=== PATIENT | male | born 1980 | race Caucasian/White ===

== ENCOUNTER 2017-08-03 12:49 | Emergency (ER) | payer OTHER ==
[~2017-08-03] VITALS: Ht 185.4 cm; Wt 79.0 kg
[~2017-08-03 12:49] MED LIST: DEXT10CA PO; IBUP800T23 PO; METH500T3 PO; OMEP20TA39 PO; RISP1TAB2 PO; SERT-129 PO; VENL75TA91 PO
[2017-08-03 13:16] VITALS: BP 149/88; PULSE 104; RESP 18; TEMP 98.8; O2SAT 96
[2017-08-03 13:36] VITALS: BP 147/98; PULSE 103; RESP 18; TEMP 97.8; O2SAT 98
--- NOTE | 2017-08-03 13:43 | PD ---
HPI . Dizziness Chief Complaint: Anxiety Time Seen by Provider: 13:33 Travel History International Travel<30 days: No Contact w/Intl Traveler<30days: No History of Present Illness HPI Patient presents with chief complaint dizziness and palpitations. Onset was noon. He states that [facility] was [facility] and was just getting ready to eat some lunch when he had the sudden onset of the dizziness. The symptoms persist. He is unaware of any modifying factors. Symptoms are mild. PFSH Past Medical History Hx Anticoagulant Therapy: No ADHD: Yes Anxiety: Yes Depression: Yes Cardiovascular Problems: No Chemotherapy: No Cerebrovascular Accident: No Diabetes: No Diminished Hearing: Yes ([place] LEFT EAR AND TINNITUS) Musculoskeletal: No Neurologic: No Respiratory: No Past Surgical History Appendectomy: Yes Tonsillectomy: Yes Other Surgery: Yes (VARICOSEAL, HEMROID SX) Social History Alcohol Use: Yes (SOCIALLY) Tobacco Use: Yes (07/09 PPD) Substance Use: No Allergies-Medications (Allergen,Severity, Reaction): Coded Allergies: codeine (Verified Allergy, Severe, Rash, 08/03/17) oxycodone (Verified Allergy, Severe, Rash, 08/03/17) acetaminophen (Unverified Allergy, Intermediate, 08/03/17) diff urinating hydrocodone (Unverified Allergy, Intermediate, 08/03/17) diff urinating sulfamethoxazole (Unverified Allergy, Intermediate, rash, 08/03/17) trimethoprim (Unverified Allergy, Intermediate, rash, 08/03/17) Reported Meds & Prescriptions Reported Meds & Active Scripts Active Potassium Chloride ER (Potassium Chloride) 20 Meq Tab 20 Meq PO BID Mag-Oxide (Magnesium Oxide) 200 Mg Magnesium Tablet 1 Tab PO BID Calcium 600 with Vitamin D (Calcium Carbonate-Cholecalciferol) 600-400 mg-Unit Tab 1 Tab PO BID Reported Omeprazole 20 Mg Tab 20 Mg PO DAILY Venlafaxine ER 24 HR (Venlafaxine HCl) 75 Mg Tab 75 Mg PO DAILY Trazodone (Trazodone HCl) 100 Mg Tablet 100-200 Mg PO HS Sertraline (Sertraline HCl) 100 Mg Tab 200 Mg PO DAILY Risperidone 1 Mg Tab 1 Mg PO HS Dextroamphetamine (Dextroamphetamine Sulfate) 10 Mg Tab 20 Mg PO DAILY Lubricant Opth Drops (Carboxymethylcellulose Sodium Opth Drops) 0.5% Drops 1 Drop EACH EYE TID PRN Review of Systems Except as stated in HPI: all other systems reviewed are Neg Eyes: No: Diploplia, Blurred Vision HENT: Positive: Lightheadedness, No: Headaches Cardiovascular: Positive: Palpitations Respiratory: No: Shortness of Breath Psychiatric: Positive: Anxiety Physical Exam Narrative GENERAL: Healthy-appearing young man in no acute distress. SKIN: warm/dry. HEAD: Normocephalic. Atraumatic. EYES: Pupils equal and round. No scleral icterus. No injection or drainage. ENT: No nasal bleeding or discharge. Mucous membranes pink and moist. NECK: Trachea midline. Full range of motion without pain.. CARDIOVASCULAR: Regular rate and rhythm. Heart sounds are normal. RESPIRATORY: No accessory muscle use. Clear to auscultation. Breath sounds equal bilaterally. MUSCULOSKELETAL: No obvious deformities. NEUROLOGICAL: Awake and alert. No obvious cranial nerve deficits. Motor grossly within normal limits. Normal speech. PSYCHIATRIC: Appropriate mood and affect; insight and judgment normal. Data Data Last Documented VS Vital Signs Date Time Temp Pulse Resp B/P (MAP) Pulse Ox O2 Delivery O2 Flow Rate FiO2 08/03/17 15:30 88 20 141/95 (110) 99 Room Air 08/03/17 13:36 97.8 Orders Orders Electrocardiogram (08/03/17 13:39) Basic Metabolic Panel (Bmp) (08/03/17 13:39) Complete Blood Count With Diff (08/03/17 13:39) Troponin I (08/03/17 13:39) Ct Brain W/O Iv Contrast(Rout) (08/03/17 13:39) Ecg Monitoring (08/03/17 13:39) Iv Access Insert/Monitor (08/03/17 13:39) Oximetry (08/03/17 13:39) Sodium Chloride 0.9% Flush (Ns Flush) (08/03/17 13:45) Diphenhydramine Inj (Benadryl Inj) (08/03/17 13:45) Prochlorperazine Inj (Compazine Inj) (08/03/17 13:45) Protein Corrected Calcium(Pcc) (08/03/17 14:25) Magnesium (Mg) (08/03/17 15:51) Potassium Chloride (Kcl) (08/03/17 16:00) Potassium Chloride (Kcl) (08/03/17 17:00) Calcium Chloride Inj (Calcium Chloride I (08/03/17 16:00) Labs Laboratory Tests Test 08/03/17 14:25 White Blood Count 6.4 TH/MM3 Red Blood Count 4.17 MIL/MM3 Hemoglobin 13.3 GM/DL Hematocrit 38.8 % Mean Corpuscular Volume 92.8 FL Mean Corpuscular Hemoglobin 31.8 PG Mean Corpuscular Hemoglobin Concent 34.3 % Red Cell Distribution Width 13.0 % Platelet Count 265 TH/MM3 Mean Platelet Volume 7.0 FL Neutrophils (%) (Auto) 71.9 % Lymphocytes (%) (Auto) 20.3 % Monocytes (%) (Auto) 6.9 % Eosinophils (%) (Auto) 0.4 % Basophils (%) (Auto) 0.5 % Neutrophils # (Auto) 4.6 TH/MM3 Lymphocytes # (Auto) 1.3 TH/MM3 Monocytes # (Auto) 0.4 TH/MM3 Eosinophils # (Auto) 0.0 TH/MM3 Basophils # (Auto) 0.0 TH/MM3 CBC Comment DIFF FINAL Differential Comment Blood Urea Nitrogen 5 MG/DL Creatinine 0.67 MG/DL Random Glucose 71 MG/DL Total Protein 5.1 GM/DL Calcium Level 6.3 MG/DL Sodium Level 145 MEQ/L Potassium Level 3.0 MEQ/L Chloride Level 117 MEQ/L Carbon Dioxide Level 21.4 MEQ/L Anion Gap 7 MEQ/L Estimat Glomerular Filtration Rate 133 ML/MIN Protein Corrected Calcium 7.3 MG/DL Troponin I LESS THAN 0.02 NG/ML MDM Medical Decision Making Medical Screen Exam Complete: Yes Emergency Medical Condition: Yes Interpretation(s) EKG shows a normal sinus rhythm with no acute ischemic changes. Differential Diagnosis Differential diagnosis of dizziness includes but is not limited to vertigo, dehydration, acute blood loss, sepsis, ACS Narrative Course This patient presents complaining with dizziness and palpitations. It is probably anxiety. Cardiac workup is in process along with a CT of his head. He is being treated with Compazine and Benadryl. I suspect that we will be able to discharge him following his workup. Last Impressions Head CT 08/03/17 9419 Signed Impressions: Service Date/Time: July 13:56 - CONCLUSION: Normal examination. Dean Ramos MD CBC & BMP Diagram 08/03/17 14:25 Total Protein 5.1 L, Calcium Level 6.3 *L His potassium has been corrected orally. The calcium has been treated with 2 g of calcium chloride. Magnesium is pending. The patient reports that he does not want to wait here any longer. The only piece of the puzzle that is missing his his magnesium level. It is probably also low since his calcium and potassium are low. I will let him go AGAINST MEDICAL ADVICE with prescriptions for potassium, calcium and magnesium. He has been instructed to follow-up at the [facility] as soon as possible for recheck of his electrolytes. AMA: The risks of leaving against medical advice without further evaluation treatment were discussed with the patient. These risks include cardiac dysfunction, cardiac dysrhythmia, possible heart attack, possible stroke or . The patient indicated understanding of these risks and appeared to have the capacity to make this decision. With strict Diagnosis Primary Impression: Dizziness Additional Impressions: Palpitations Hypocalcemia Hypokalemia Additional Instructions: Follow-up at the [facility] next week to have your electrolytes checked again. Scripts Potassium Chloride ER (Potassium Chloride ER) 20 Meq Tab 20 MEQ PO BID for Electrolyte Replacement, #60 TAB 0 Refills Prov: Karol Payne MD 08/03/17 Magnesium Oxide (Mag-Oxide) 200 Mg Magnesium Tablet 1 TAB PO BID, #60 Prov: Karol Payne MD 08/03/17 Calcium Carbonate-Cholecalciferol (Calcium 600 with Vitamin D) 600-400 mg-Unit Tab 1 TAB PO BID for Calcium Supplement, #60 TAB 0 Refills Prov: Karol Payne MD 08/03/17 Disposition: 07 AGAINST MEDICAL ADVICE Condition: Stable Karol Payne MD Aug 03, 2017 13:43
[2017-08-03] MEDS ORDERED: PROCHLORPERAZINE INJ 10 MG/2 ML VIAL IV PUSH ONE (13:45)
[2017-08-03] MEDS ORDERED: diphenhydrAMINE HCL 50 MG/ML VIAL IV PUSH ONE (13:45)
[2017-08-03] MEDS ORDERED: SODIUM CHLORIDE 0.9% FLUSH 10 ML FLUSH IVF PRN (13:45)
[2017-08-03] MEDS ORDERED: RISP1TAB2 PO (13:49)
[2017-08-03] MEDS ORDERED: VENL75TA2 PO (13:49)
[2017-08-03] MEDS ORDERED: LUBR0.5D2 EACH EYE (13:49)
[2017-08-03] MEDS ORDERED: TRAZ100T10 PO (13:49)
[2017-08-03] MEDS ORDERED: SERT-129 PO (13:49)
[2017-08-03] MEDS ORDERED: DEXT10TA2 PO (13:49)
[2017-08-03] MEDS ORDERED: OMEP20TA93 PO (13:50)
--- NOTE | 2017-08-03 14:16 | RADRPT ---
EXAM DATE/TIME: 08/03/2017 13:56 [facility] COMPARISON: No previous studies available for comparison. INDICATIONS : Dizzy elavated heart rate. RADIATION DOSE: 37.05 CTDIvol (mGy) MEDICAL HISTORY : Diabetes SURGICAL HISTORY : None. ENCOUNTER: Initial ACUITY: 1 day PAIN SCALE: 0/10 LOCATION: cranial TECHNIQUE: Multiple contiguous axial images were obtained of the head. Using automated exposure control and adj ustment of the mA and/or kV according to patient size, radiation dose was kept as low as reasonably a chievable to obtain optimal diagnostic quality images. DICOM format image data is available electro nically for review and comparison. FINDINGS: CEREBRUM: The ventricles are normal for age. No evidence of midline shift, mass lesion, hemorrhage or acute in farction. No extra-axial fluid collections are seen. POSTERIOR FOSSA: The cerebellum and brainstem are intact. The 4th ventricle is midline. The cerebellopontine angle i s unremarkable. EXTRACRANIAL: The visualized portion of the orbits is intact. SKULL: The calvaria is intact. No evidence of skull fracture. CONCLUSION: Normal examination. Dean Ramos MD on August 03, 2017 at 14:13 Board Certified Radiologist. This report was verified electronically.
[2017-08-03 14:21] VITALS: O2SAT 98
[2017-08-03 14:26] VITALS: BP 154/103; PULSE 95; RESP 18; O2SAT 99
[2017-08-03 14:58] LABS: AUTOMATED NEUTROPHIL # 4.6 TH/MM3 (1.8-7.7); BASOPHIL % 0.5 % (0.0-2.0); EOSINOPHIL % 0.4 % (0.0-4.0); HEMATOCRIT 38.8 % (39.0-51.0); HEMOGLOBIN 13.3 GM/DL (13.0-17.0); LYMPH % 20.3 % (9.0-44.0); LYMPHOCYTE # 1.3 TH/MM3 (1.0-4.8); MEAN CELL VOLUME 92.8 FL (80.0-100.0); MEAN CORPUSCULAR HEMOGLOBIN 31.8 PG (27.0-34.0); MEAN CORPUSCULAR HGB CONC 34.3 % (32.0-36.0); MONO % 6.9 % (0.0-8.0); MONOCYTE # 0.4 TH/MM3 (0-0.9); NEUT % 71.9 % (16.0-70.0); PLATELET COUNT 265 TH/MM3 (150-450); RED BLOOD COUNT 4.17 MIL/MM3 (4.50-5.90); WHITE BLOOD COUNT 6.4 TH/MM3 (4.0-11.0)
[2017-08-03 15:30] VITALS: BP 141/95; PULSE 88; RESP 20; O2SAT 99
[2017-08-03 15:40] LABS: BICARBONATE 21.4 MEQ/L (21.0-32.0); BLOOD UREA NITROGEN 5 MG/DL (7-18); CALCIUM 6.3 MG/DL (8.5-10.1); CHLORIDE 117 MEQ/L (98-107); CREATININE 0.67 MG/DL (0.60-1.30); GLOMERULAR FILTRATION RATE 133 ML/MIN (>89); GLUCOSE,RANDOM 71 MG/DL (74-106); SODIUM (NA) 145 MEQ/L (136-145); TROPONIN I LESS THAN 0.02 NG/ML (0.02-0.05)
[2017-08-03] MEDS ORDERED: CALCIUM CHLORIDE INJ 2 GM in SODIUM CHLORIDE 0.9% INJ 100 ML IV ONE (16:00)
[2017-08-03] MEDS ORDERED: POTASSIUM CHLORIDE 20 MEQ CONTROLLED RELEASE TAB PO ONE ×2 (16:00→17:00)
[2017-08-03 16:01] LABS: TOTAL PROTEIN 5.1 GM/DL (6.4-8.2)
[2017-08-03 16:35] LABS: CALCIUM-PROTEIN CORRECTED 7.3 MG/DL (8.5-10.1)
[2017-08-03] MEDS ORDERED: MAGN200T9 PO (16:55)
[2017-08-03] MEDS ORDERED: POTA-163 PO (16:55)
[2017-08-03] MEDS ORDERED: CALC1TAB87 PO (16:55)
[2017-08-03] MEDS ORDERED: CALCIUM/VITAMIN D 250 MG/125 U TAB PO ONE (17:15)
[2017-08-03 17:30] VITALS: BP 129/86; PULSE 80; RESP 15; O2SAT 100
--- NOTE | 2017-08-04 11:17 | EKG ---
Date Performed: 08/03/2017 Time Performed: 14:41:52 PTAGE: 37 years EKG: Sinus rhythm NORMAL ECG NO PREVIOUS TRACING DOCTOR: Reinier Meneses Interpretating Date/Time 08/04/2017 11:12:55
== END 2017-08-03 18:21 | disposition home or self-care (01) ==
LOC: NEPD 12:49
DX: R42 Dizziness and giddiness (principal); R00.2 Palpitations; E83.51 Hypocalcemia; E87.6 Hypokalemia; Z53.20 Procedure and treatment not carried out because of patient's decision for unspecified reasons; F41.9 Anxiety disorder, unspecified; F32.9 Major depressive disorder, single episode, unspecified; F17.210 Nicotine dependence, cigarettes, uncomplicated; Z88.5 Allergy status to narcotic agent; Z88.2 Allergy status to sulfonamides; Z88.8 Allergy status to other drugs, medicaments and biological substances; Z79.899 Other long term (current) drug therapy
CPT/HCPCS: 70450; 80048; 83735; 84155; 84484; 85025; 93005; 96374; 96375; 99285; J0780; J1200

== ENCOUNTER 2017-09-01 23:15 | Emergency (ER) | payer OTHER ==
[~2017-09-01 23:15] MED LIST changes: +CALC1TAB87 PO; -DEXT10CA PO; +DEXT10TA2 PO; -IBUP800T23 PO; +LUBR0.5D2 EACH EYE; +MAGN200T9 PO; -METH500T3 PO; -OMEP20TA39 PO; +OMEP20TA93 PO; +POTA-163 PO; +TRAZ100T10 PO; +VENL75TA2 PO; -VENL75TA91 PO
[2017-09-01 23:25] VITALS: BP 158/98; PULSE 93; RESP 18; TEMP 97.3; O2SAT 96
--- NOTE | 2017-09-01 23:38 | PD ---
HPI Chief Complaint: Oral / Dental Pain or Problem Time Seen by Provider: 23:30 Travel History International Travel<30 days: No Contact w/Intl Traveler<30days: No Traveled to known affect area: No History of Present Illness HPI This is a 37-year-old male presents for evaluation of postoperative dental pain. He reports that he had a tooth extracted today and the dentist did not prescribe him any pain medicine. He reports that most pain medications did not work for pain control and the only one that seems to help his Percocet. He reports a throbbing pain which is worse when chewing. He does not know why the dentist did not prescribe him any pain medicine. He has no other complaints. PFSH Past Medical History Hx Anticoagulant Therapy: No ADHD: Yes Anxiety: Yes Depression: Yes Cardiovascular Problems: No Chemotherapy: No Cerebrovascular Accident: Yes (TIA-JUN 2017) Diabetes: No Diminished Hearing: Yes ([place] LEFT EAR AND TINNITUS) GERD: Yes Headaches: Yes Musculoskeletal: No Neurologic: Yes Psychiatric: Yes Respiratory: No Pneumonia: Yes Past Surgical History Appendectomy: Yes Tonsillectomy: Yes Other Surgery: Yes (VARICOSEAL, HEMROID SX, ARTIFICIAL DISC PLACED IN NECK- CERVICAL SX) Social History Alcohol Use: Yes (SOCIALLY) Tobacco Use: No Substance Use: No Allergies-Medications (Allergen,Severity, Reaction): Coded Allergies: codeine (Verified Allergy, Severe, Rash, 09/01/17) oxycodone (Verified Allergy, Severe, Rash, 09/01/17) pt denies 09/01/17 acetaminophen (Unverified Allergy, Intermediate, 09/01/17) diff urinating hydrocodone (Unverified Allergy, Intermediate, 09/01/17) diff urinating sulfamethoxazole (Unverified Allergy, Intermediate, rash, 09/01/17) trimethoprim (Unverified Allergy, Intermediate, rash, 09/01/17) Reported Meds & Prescriptions Reported Meds & Active Scripts Active Diclofenac Sodium DR (Diclofenac Sodium) 75 Mg Tabdr 75 Mg PO BID 10 Days Potassium Chloride ER (Potassium Chloride) 20 Meq Tab 20 Meq PO BID Mag-Oxide (Magnesium Oxide) 200 Mg Magnesium Tablet 1 Tab PO BID Calcium 600 with Vitamin D (Calcium Carbonate-Cholecalciferol) 600-400 mg-Unit Tab 1 Tab PO BID Reported Omeprazole 20 Mg Tab 20 Mg PO DAILY Venlafaxine ER 24 HR (Venlafaxine HCl) 75 Mg Tab 75 Mg PO DAILY Trazodone (Trazodone HCl) 100 Mg Tablet 100-200 Mg PO HS Sertraline (Sertraline HCl) 100 Mg Tab 200 Mg PO DAILY Risperidone 1 Mg Tab 1 Mg PO HS Dextroamphetamine (Dextroamphetamine Sulfate) 10 Mg Tab 20 Mg PO DAILY Lubricant Opth Drops (Carboxymethylcellulose Sodium Opth Drops) 0.5% Drops 1 Drop EACH EYE TID PRN Review of Systems General / Constitutional: No: Fever, Chills HENT: Positive: Dental Difficulties Physical Exam Narrative GENERAL: Well-developed well-nourished male in no acute distress SKIN: Warm and dry. HEAD: Atraumatic. Normocephalic. EYES: Pupils equal and round. No scleral icterus. No injection or drainage. ENT: No nasal bleeding or discharge. Mucous membranes pink and moist. Examination of left mandibular gingiva reveals post extraction site with sutures in place left mandibular first molar region. NECK: Trachea midline. No JVD. No lymphadenopathy CARDIOVASCULAR: Regular rate and rhythm. No murmur appreciated. RESPIRATORY: No accessory muscle use. Clear to auscultation. Breath sounds equal bilaterally. Data Data Last Documented VS Vital Signs Date Time Temp Pulse Resp B/P (MAP) Pulse Ox O2 Delivery O2 Flow Rate FiO2 09/01/17 23:25 97.3 93 18 158/98 (118) 96 Orders Orders Bupivacaine Pf 0.5% Inj (Marcaine Pf 0.5 (09/01/17 23:45) Ed Discharge Order (09/02/17 00:20) MDM Medical Decision Making Medical Screen Exam Complete: Yes Emergency Medical Condition: Yes Medical Record Reviewed: Yes Differential Diagnosis Postoperative dental pain, alveolar osteitis, dental abscess Narrative Course 37-year-old male presents with postoperative dental pain. He had his left mandibular first molar extracted today. He was not prescribed any pain medication. He has several medication allergies listed. On inferior alveolar nerve block was performed after patient consent was obtained. He reports resolution of his pain. He will be discharged with diclofenac. Procedures Procedure Narrative Inferior alveolar nerve block: Performed on the left side utilizing 3 mL of 0.5 % Marcaine. Patient tolerated procedure well. Diagnosis Primary Impression: Dentalgia Additional Instructions: Medication as needed. Take with meals. Follow-up with your dentist. Return for any emergent medical conditions. Med/Other Pt SpecificInfo: Prescription(s) given Scripts Diclofenac Sodium DR (Diclofenac Sodium DR) 75 Mg Tabdr 75 MG PO BID for 10 Days, #20 TAB 0 Refills Prov: Jerad العراقي MD 09/02/17 Disposition: 01 DISCHARGE HOME Condition: Stable Hudson Reeder Sep 01, 2017 23:38
[2017-09-01] MEDS ORDERED: BUPIVACAINE HCL PF 0.5% 10 ML VIAL INFIL ONE (23:45)
[2017-09-02] MEDS ORDERED: DICL75TA PO (00:20)
== END 2017-09-02 01:11 | disposition home or self-care (01) ==
LOC: NEPD 23:15
DX: K08.89 Other specified disorders of teeth and supporting structures (principal); K21.9 Gastro-esophageal reflux disease without esophagitis
CPT/HCPCS: 64450